=== PATIENT | female | born 1955 | race Caucasian/White ===

== ENCOUNTER 2017-06-13 23:15 | Observation (INO) | payer OTHER ==
[2017-06-13] MEDS ORDERED: NS 1,000 ML IV ONE ×2 (23:22)
[2017-06-13] MEDS ORDERED: ONDANSETRON 4 MG/2 ML VIAL IVP ONE (23:22)
--- NOTE | 2017-06-13 23:26 | EDPHY ---
H & P HPI/ROS: HPI CHIEF COMPLAINT: Nausea, vomiting, diarrhea, abdominal pain HISTORY OF PRESENT ILLNESS: This patient is 61-year-old female she reports to me she has no significant medical history does not take any daily medications she has had an appendectomy and cholecystectomy. She presents emergency room for 3 days of nausea vomiting and diarrhea. She reports that the diarrhea is watery. Nonbloody. She endorses chills and muscle aches but no fever. She denies chest pain. She does endorse some mild shortness of breath with nausea. She also complains of lower abdominal pain. No urinary symptoms. She states she was in a conference at [facility] and started getting sick on Monday with nausea vomiting and then diarrhea started. Past Medical History: Denies significant medical history except for osteoporosis, recent dental extraction no antibiotics. Past Surgical History: Cholecystectomy, appendectomy Social History: Denies daily drug use alcohol tobacco. Family History: Noncontributory ROS REVIEW OF SYSTEMS: A comprehensive 10 point review of systems is otherwise negative aside from elements mentioned in the history of present illness. Exam Constitutional appears well nontoxic triage nursing summary reviewed, vital signs reviewed, awake/alert. Eyes normal conjunctivae and sclera, EOMI, PERRLA. HENT normal inspection, atraumatic, moist mucus membranes, no epistaxis, neck supple/ no meningismus, no raccoon eyes. Respiratory clear to auscultation bilaterally, normal breath sounds, no respiratory distress, no wheezing. Cardiovascular rate normal, regular rhythm, no murmur, no edema, distal pulses normal. Gastrointestinal soft, mild tender palpation lower abdomen , no rebound, no guarding, normal bowel sounds, no distension, no pulsatile mass. Genitourinary no CVA tenderness. Musculoskeletal no midline vertebral tenderness, full range of motion, no calf swelling, no tenderness of extremities, no meningismus, good pulses, neurovascularly intact. Skin pink, warm, & dry, no rash, skin atraumatic. Neurologic awake, alert and oriented x 3, AAOx3, moves all 4 extremities equally, motor intact, sensory intact, CN II-XII intact, normal cerebellar, normal vision, normal speech. Psychiatric normal mood/affect. Heme/Lymph/Immune no lymphadenopathy. Differential diagnosis includes but is not limited to and in no particular order : Bowel obstruction, diverticulitis, colitis, enteritis, perforated viscus, gastritis, GERD, esophagitis, urinary tract infection, pyelonephritis, kidney stones Medical Decision Making: Plan for this patient IV established with IV fluid bolus, 1 L normal saline, IV Zofran 4 mg for nausea, GI pathogen panel, electrolytes, CT scan abdomen pelvis with IV contrast rule out colitis or diverticulitis. Reason for CT scan lower abdominal pain in the setting of elderly female with diarrhea. Check UA. Re-evaluate. Re-evaluation: EKG interpretation by me on record in [facility] system. Impression time of EKG 2351 sinus rhythm rate of 67. No acute ischemic change appreciated. CT scan abdomen pelvis with IV contrast; shows no acute inflammatory process. Reviewed patient's blood work this shows hepatitis or elevated liver enzymes, elevated alk-phos and bilirubin. CT scan does not show anything significant of the liver or biliary tract. Biliary tract does not appear dilated post cholecystectomy. Patient does not have significant right upper quadrant pain. Patient be admitted to the hospitalist service for nausea vomiting diarrhea generalized weakness low-sodium and elevated LFTs. Spoke with the hospitalist service Dr. Turner who agrees to admit this patient to the medicine service for nausea vomiting diarrhea generalized weakness elevated LFTs. She did receive 1 L normal saline here in the emergency room. Source: Patient, EMS Constitutional: Initial Vital Signs Temperature (C) 36.8 C 06/13/17 23:19 Heart Rate 68 06/13/17 23:19 Respiratory Rate 16 06/13/17 23:19 Blood Pressure 146/58 H 06/13/17 23:19 O2 Sat (%) 97 06/13/17 23:19 O2 Delivery Mode Room Air Allergies/Adverse Reactions: gluten Allergy (Verified 06/13/17 23:27) lactose Allergy (Verified 06/13/17 23:27) Home Medications: Medication Instructions Recorded NK [No Known Home Meds] 06/13/17 Medical Decision Making - Diagnostics Imaging Results: Imaging Impressions Abdomen CT 06/13/17 23:22 Impression: 1. No acute findings. 2. Mild biliary dilatation, most likely related to prior cholecystectomy. 3. Periportal edema, which can be seen with vigorous IV hydration but is nonspecific. 4. Additional findings as above. Findings discussed with Chad Beard MD 06/14/2017 at 0:27. - Data Points Laboratory Results: Laboratory Results 06/13/17 23:15 06/13/17 23:15 06/14/17 06/13/17 06/13/17 00:36 23:15 23:15 WBC RBC Hgb Hct MCV MCH MCHC RDW Plt Count MPV Neut % (Auto) Lymph % (Auto) Trigg % (Auto) Eos % (Auto) Baso % (Auto) Nucleat RBC Rel Count Absolute Neuts (auto) Absolute Lymphs (auto) Absolute Monos (auto) Absolute Eos (auto) Absolute Basos (auto) Absolute Nucleated RBC Immature Gran % Immature Gran # Platelet Estimate PT 12.7 SEC SEC (12.0-15.0) INR 0.96 (0.83-1.16) APTT 27.0 SEC SEC (23.0-38.0) Sodium Potassium Chloride Carbon Dioxide Anion Gap BUN Creatinine Estimated GFR Glucose Calcium Total Bilirubin Conjugated Bilirubin Unconjugated Bilirubin AST ALT Alkaline Phosphatase Troponin I Total Protein Albumin Lipase Urine Color Urine Appearance Urine pH Ur Specific [place] Urine Protein Urine Ketones Urine Blood Urine Nitrate Urine Bilirubin Urine Urobilinogen Ur Leukocyte Esterase Urine Glucose Nasal Influenza A PCR Pending Nasal Influenza B PCR Pending Hepatitis A IgM Ab Pending Hep Bs Antigen Pending Hep B Core IgM Ab Pending Hepatitis C Antibody Pending 06/13/17 06/13/17 06/13/17 23:15 23:15 00:29 WBC 7.82 10^3/uL 10^3/uL (3.80-9.50) RBC 4.81 10^6/uL 10^6/uL (4.18-5.33) Hgb 15.6 g/dL g/dL (12.6-16.3) Hct 41.8 % % (38.0-47.0) MCV 86.9 fL fL (81.5-99.8) MCH 32.4 pg pg (27.9-34.1) MCHC 37.3 g/dL H g/dL (32.4-36.7) RDW 12.3 % % (11.5-15.2) Plt Count 203 10^3/uL 10^3/uL (150-400) MPV 10.1 fL fL (8.7-11.7) Neut % (Auto) 74.6 % H % (39.3-74.2) Lymph % (Auto) 13.0 % L % (15.0-45.0) Trigg % (Auto) 11.3 % % (4.5-13.0) Eos % (Auto) 0.3 % L % (0.6-7.6) Baso % (Auto) 0.3 % % (0.3-1.7) Nucleat RBC Rel Count 0.0 % % (0.0-0.2) Absolute Neuts (auto) 5.84 10^3/uL 10^3/uL (1.70-6.50) Absolute Lymphs (auto) 1.02 10^3/uL 10^3/uL (1.00-3.00) Absolute Monos (auto) 0.88 10^3/uL H 10^3/uL (0.30-0.80) Absolute Eos (auto) 0.02 10^3/uL L 10^3/uL (0.03-0.40) Absolute Basos (auto) 0.02 10^3/uL 10^3/uL (0.02-0.10) Absolute Nucleated RBC 0.00 10^3/uL 10^3/uL (0-0.01) Immature Gran % 0.5 % % (0.0-1.1) Immature Gran # 0.04 10^3/uL 10^3/uL (0.00-0.10) Platelet Estimate Pending PT INR APTT Sodium 131 mEq/L L mEq/L (134-144) Potassium 3.3 mEq/L L mEq/L (3.5-5.2) Chloride 92 mEq/L L mEq/L (97-110) Carbon Dioxide 26 mEq/l mEq/l (22-31) Anion Gap 13 mEq/L mEq/L (8-16) BUN 7 mg/dL mg/dL (7-23) Creatinine 1.0 mg/dL mg/dL (0.6-1.0) Estimated GFR 56 Glucose 124 mg/dL H mg/dL (70-100) Calcium 9.2 mg/dL mg/dL (8.5-10.4) Total Bilirubin 2.4 mg/dL H mg/dL (0.1-1.4) Conjugated Bilirubin 0.8 mg/dL H mg/dL (0.0-0.5) Unconjugated Bilirubin 1.6 mg/dL H mg/dL (0.0-1.1) AST 626 IU/L H IU/L (14-46) ALT 377 IU/L H IU/L (9-52) Alkaline Phosphatase 190 IU/L H IU/L (38-126) Troponin I < 0.012 ng/mL ng/mL (0.000-0.034) Total Protein 6.6 g/dL g/dL (6.3-8.2) Albumin 4.2 g/dL g/dL (3.5-5.0) Lipase 312 IU/L H IU/L (23-300) Urine Color Pending Urine Appearance Pending Urine pH Pending Ur Specific [place] Pending Urine Protein Pending Urine Ketones Pending Urine Blood Pending Urine Nitrate Pending Urine Bilirubin Pending Urine Urobilinogen Pending Ur Leukocyte Esterase Pending Urine Glucose Pending Nasal Influenza A PCR Nasal Influenza B PCR Hepatitis A IgM Ab Hep Bs Antigen Hep B Core IgM Ab Hepatitis C Antibody Medications Given: Discontinued Medications Sodium Chloride (Ns) 1,000 mls @ 0 mls/hr IV EDNOW ONE; Wide Open PRN Reason: Protocol Stop: 06/13/17 23:23 Last Admin: 06/13/17 23:40 Dose: 1,000 mls Ondansetron HCl (Zofran) 4 mg IVP EDNOW ONE Stop: 06/13/17 23:23 Last Admin: 06/13/17 23:40 Dose: 4 mg Departure - Departure Disposition: [facility] Inpatient Acute Clinical Impression: Elevated LFTs, Hyponatremia Condition: Fair Referrals: Patient,NotPresent [Primary Care Provider] - As per Instructions
[2017-06-13 23:37] LABS: INR 0.96 (0.83-1.16); PROTIME(PATIENT) 12.7 SEC (12.0-15.0)
[2017-06-13 23:39] LABS: ALANINE AMINOTRANSFERASE 377 IU/L (9-52); ALBUMIN 4.2 g/dL (3.5-5.0); ALKALINE PHOSPHATASE 190 IU/L (38-126); ANION GAP 13 mEq/L (8-16); ASPARTATE AMINOTRANSFERASE 626 IU/L (14-46); BILIRUBIN,TOTAL 2.4 mg/dL (0.1-1.4); BILIRUBIN-CONJUGATED 0.8 mg/dL (0.0-0.5); BILIRUBIN-UNCONJUGATED 1.6 mg/dL (0.0-1.1); CALCIUM 9.2 mg/dL (8.5-10.4); CARBON DIOXIDE 26 mEq/l (22-31); CHLORIDE 92 mEq/L (97-110); GLOMERULAR FILTRATION RATE 56; GLUCOSE 124 mg/dL (70-100); POTASSIUM 3.3 mEq/L (3.5-5.2); SODIUM 131 mEq/L (134-144); TOTAL PROTEIN 6.6 g/dL (6.3-8.2)
[2017-06-13] MEDS ORDERED: IOPAMIDOL (ISOVUE-300) 100 ML BTL ONE (23:41)
[2017-06-13 23:50] LABS: TROPONIN I < 0.012 ng/mL (0.000-0.034)
--- NOTE | 2017-06-13 23:54 | CPEKG ---
Heart Rate: 67 RR Interval: 896 P-R Interval: 196 QRSD Interval: 100 QT Interval: 432 QTC Interval: 456 P Henning: 24 QRS Henning: -21 T Wave Henning: 38 EKG Severity - OTHERWISE NORMAL ECG - EKG Impression: SINUS RHYTHM EKG Impression: BORDERLINE LEFT AXIS DEVIATION Electronically Signed By: Chad Beard 14-Jun-2017 06:23:00
[2017-06-13 23:58] LABS: % IMMATURE GRANULYOCYTES 0.5 % (0.0-1.1); ABSOLUTE IMMATURE GRANULOCYTES 0.04 10^3/uL (0.00-0.10); ADD DIFF? NO; ADD MORPH? YES; HEMATOCRIT 41.8 % (38.0-47.0); HEMOGLOBIN 15.6 g/dL (12.6-16.3); MEAN CELL HEMOGLOBIN 32.4 pg (27.9-34.1); MEAN CELL HEMOGLOBIN CONCENTR. 37.3 g/dL (32.4-36.7); MEAN CELL VOLUME 86.9 fL (81.5-99.8); MEAN PLATELET VOLUME 10.1 fL (8.7-11.7); PLATELET COUNT 203 10^3/uL (150-400); RED BLOOD CELL COUNT 4.81 10^6/uL (4.18-5.33); RED CELL DISTRIBUTION WIDTH 12.3 % (11.5-15.2)
[2017-06-14 00:44] LABS: COLOR YELLOW; LEUKOCYTE ESTERASE,URINE NEGATIVE (NEGATIVE); NITRITE,URINE NEGATIVE (NEGATIVE)
[2017-06-14] MEDS ORDERED: ACETAMINOPHEN 325 MG TAB PO PRN (00:45)
[2017-06-14] MEDS ORDERED: ONDANSETRON 4 MG/2 ML VIAL IVP PRN (00:45)
[2017-06-14] MEDS ORDERED: D5W 1/2 NS W/ 20 KCl/L 1,000 ML IV SCH (00:45)
[2017-06-14] MEDS ORDERED: ONDANSETRON DISINTEGRATING 4 MG TAB PO PRN (00:45)
[2017-06-14 01:15] LABS: PLATELET ESTIMATE ADEQUATE (ADEQ); POLYCHROMASIA 1+
--- NOTE | 2017-06-14 02:16 | PDGENHP ---
History and Physical - Chief Complaint Diarrhea - History of Present Illness 61 yo F w/ no significant PMHx presents with diarrhea. 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 She relates that several people at the conference had similar symptoms. She denies consuming any unusual or undercooked foods. She called EMS to bring her to the ED once she felt to fatigued to bring herself to the hospital. At the time of my evaluation her symptoms are improved after fluids and anti-emetics. History Information - Allergies/Home Medication List Allergies/Adverse Reactions: gluten Allergy (Verified 06/13/17 23:27) lactose Allergy (Verified 06/13/17 23:27) Home Medications: NK [No Known Home Meds] 06/13/17 [Last Taken Unknown] I have personally reviewed and updated: family history, medical history - Past Medical History osteoporosis - Surgical History Reports: cholecystectomy - Family History Positive for: cancer - Social History Smoking Status: Former smoker Review of Systems Review of Systems: ROS: 10pt was reviewed & negative except for what was stated in HPI & below Physical Exam Physical Exam: Temp Pulse Resp BP Pulse Ox 36.9 C 69 16 127/60 H 97 06/14/17 01:29 06/14/17 01:29 06/14/17 01:29 06/14/17 01:29 06/14/17 01:29 Constitutional: no apparent distress, not in pain Eyes: PERRL, EOMI Ears, Nose, Mouth, Throat: moist mucous membranes, no oral mucosal ulcers Cardiovascular: regular rate and rhythym, no murmur, rub, or gallop Respiratory: no respiratory distress, no rales or rhonchi Gastrointestinal: normoactive bowel sounds, soft, non-tender abdomen Skin: warm, normal color Musculoskeletal: full muscle strength, no muscle tenderness Neurologic: AAOx3, CN II-XII Intact Lab Data & Imaging Review 06/13/17 23:15 06/13/17 23:15 WBC 7.82 10^3/uL (3.80-9.50) 06/13/17 23:15 RBC 4.81 10^6/uL (4.18-5.33) 06/13/17 23:15 Hgb 15.6 g/dL (12.6-16.3) 06/13/17 23:15 Hct 41.8 % (38.0-47.0) 06/13/17 23:15 MCV 86.9 fL (81.5-99.8) 06/13/17 23:15 MCH 32.4 pg (27.9-34.1) 06/13/17 23:15 MCHC 37.3 g/dL (32.4-36.7) H 06/13/17 23:15 RDW 12.3 % (11.5-15.2) 06/13/17 23:15 Plt Count 203 10^3/uL (150-400) 06/13/17 23:15 MPV 10.1 fL (8.7-11.7) 06/13/17 23:15 Neut % (Auto) 74.6 % (39.3-74.2) H 06/13/17 23:15 Lymph % (Auto) 13.0 % (15.0-45.0) L 06/13/17 23:15 Scott % (Auto) 11.3 % (4.5-13.0) 06/13/17 23:15 Eos % (Auto) 0.3 % (0.6-7.6) L 06/13/17 23:15 Baso % (Auto) 0.3 % (0.3-1.7) 06/13/17 23:15 Nucleat RBC Rel Count 0.0 % (0.0-0.2) 06/13/17 23:15 Absolute Neuts (auto) 5.84 10^3/uL (1.70-6.50) 06/13/17 23:15 Absolute Lymphs (auto) 1.02 10^3/uL (1.00-3.00) 06/13/17 23:15 Absolute Monos (auto) 0.88 10^3/uL (0.30-0.80) H 06/13/17 23:15 Absolute Eos (auto) 0.02 10^3/uL (0.03-0.40) L 06/13/17 23:15 Absolute Basos (auto) 0.02 10^3/uL (0.02-0.10) 06/13/17 23:15 Absolute Nucleated RBC 0.00 10^3/uL (0-0.01) 06/13/17 23:15 Immature Gran % 0.5 % (0.0-1.1) 06/13/17 23:15 Immature Gran # 0.04 10^3/uL (0.00-0.10) 06/13/17 23:15 Platelet Estimate ADEQUATE (ADEQ) 06/13/17 23:15 Polychromasia 1+ H 06/13/17 23:15 PT 12.7 SEC (12.0-15.0) 06/13/17 23:15 INR 0.96 (0.83-1.16) 06/13/17 23:15 APTT 27.0 SEC (23.0-38.0) 06/13/17 23:15 Sodium 131 mEq/L (134-144) L 06/13/17 23:15 Potassium 3.3 mEq/L (3.5-5.2) L 06/13/17 23:15 Chloride 92 mEq/L (97-110) L 06/13/17 23:15 Carbon Dioxide 26 mEq/l (22-31) 06/13/17 23:15 Anion Gap 13 mEq/L (8-16) 06/13/17 23:15 BUN 7 mg/dL (7-23) 06/13/17 23:15 Creatinine 1.0 mg/dL (0.6-1.0) 06/13/17 23:15 Estimated GFR 56 06/13/17 23:15 Glucose 124 mg/dL (70-100) H 06/13/17 23:15 Calcium 9.2 mg/dL (8.5-10.4) 06/13/17 23:15 Total Bilirubin 2.4 mg/dL (0.1-1.4) H 06/13/17 23:15 Conjugated Bilirubin 0.8 mg/dL (0.0-0.5) H 06/13/17 23:15 Unconjugated Bilirubin 1.6 mg/dL (0.0-1.1) H 06/13/17 23:15 AST 626 IU/L (14-46) H 06/13/17 23:15 ALT 377 IU/L (9-52) H 06/13/17 23:15 Alkaline Phosphatase 190 IU/L (38-126) H 06/13/17 23:15 Troponin I < 0.012 ng/mL (0.000-0.034) 06/13/17 23:15 Total Protein 6.6 g/dL (6.3-8.2) 06/13/17 23:15 Albumin 4.2 g/dL (3.5-5.0) 06/13/17 23:15 Lipase 312 IU/L (23-300) H 06/13/17 23:15 Urine Color YELLOW 06/13/17 00:29 Urine Appearance CLEAR 06/13/17 00: Urine pH 6.0 (5.0-7.5) 06/13/17 00:29 Ur Specific [place] 1.011 (1.002-1.030) 06/13/17 00:29 Urine Protein NEGATIVE (NEGATIVE) 06/13/17 00: Urine Ketones NEGATIVE (NEGATIVE) 06/13/17 00: Urine Blood 1+ (NEGATIVE) H 06/13/17 00:29 Urine Nitrate NEGATIVE (NEGATIVE) 06/13/17 00: Urine Bilirubin NEGATIVE (NEGATIVE) 06/13/17: Urine Urobilinogen NEGATIVE EU (0.2-1.0) 06/13/17 00:29 Ur Leukocyte Esterase NEGATIVE (NEGATIVE) 06/13/17 00:29 Urine RBC 1-3 /hpf (0-3) 06/13/17 00:29 Urine WBC 1-3 /hpf (0-3) 06/13/17 00:29 Ur Epithelial Cells TRACE /lpf (NONE-1+) 06/13/17 00:29 Urine Glucose NEGATIVE (NEGATIVE) 06/13/17 00:29 Nasal Influenza A PCR NEGATIVE FOR FLU A (NEGATIVE) 06/14/17 00:36 Nasal Influenza B PCR NEGATIVE FOR FLU B (NEGATIVE) 06/14/17 00:36 Imaging Review: CT A/P with no acute findings. Visualized and Interpreted EKG results: Yes EKG Interpretation: Positive for: normal sinsus rhythm, NS ST wave abnormalities Assessment & Plan Assessment: 61 yo F w/ no significant PMHx presents with severe diarrhea, abnormal LFTs, and significant dehydration. Plan: 1. Diarrhea - Suspect viral etiology noting that this started while she was traveling for a conference and several other attendees had similar symptoms. She denies recent abx, foreign travel, or consumption of unusual or undercooked foods. Influenza negative. - Supportive care w/ mIVF, anti-emetics - Will check GI PCR and acute hepatitis panels 2. Abnormal LFTs - Related to above process and likely a reflection of viral inflammation. CT A/P without acute findings. She is s/p cholecystectomy. Will check acute hepatitis panel and HIV. 3. Hyponatremia, hypokalemia - Reflection of dehydration and diarrhea; NS + K in mIVF. Diet - Clears, ADAT Code - Full Ppx - SCDs Dispo - Admit to observation status
[2017-06-14] MEDS: NS W/ 20 KCl/L 1,000 ML IV SCH ×2 (02:32→13:58)
[2017-06-14 05:13] LABS: % IMMATURE GRANULYOCYTES 0.5 % (0.0-1.1); ABSOLUTE IMMATURE GRANULOCYTES 0.02 10^3/uL (0.00-0.10); ADD DIFF? NO; HEMATOCRIT 37.5 % (38.0-47.0); HEMOGLOBIN 13.9 g/dL (12.6-16.3); MEAN CELL HEMOGLOBIN 32.2 pg (27.9-34.1); MEAN CELL HEMOGLOBIN CONCENTR. 37.1 g/dL (32.4-36.7); MEAN CELL VOLUME 86.8 fL (81.5-99.8); MEAN PLATELET VOLUME 9.7 fL (8.7-11.7); PLATELET COUNT 174 10^3/uL (150-400); RED BLOOD CELL COUNT 4.32 10^6/uL (4.18-5.33); RED CELL DISTRIBUTION WIDTH 12.2 % (11.5-15.2)
[2017-06-14 05:14] LABS: ADD MORPH? YES
[2017-06-14 05:15] LABS: ALANINE AMINOTRANSFERASE 561 IU/L (9-52); ALBUMIN 3.2 g/dL (3.5-5.0); ALKALINE PHOSPHATASE 153 IU/L (38-126); ANION GAP 8 mEq/L (8-16); ASPARTATE AMINOTRANSFERASE 611 IU/L (14-46); BILIRUBIN,TOTAL 1.2 mg/dL (0.1-1.4); CALCIUM 8.4 mg/dL (8.5-10.4); CARBON DIOXIDE 26 mEq/l (22-31); CHLORIDE 107 mEq/L (97-110); CREATININE 0.8 mg/dL (0.6-1.0); GLOMERULAR FILTRATION RATE > 60; GLUCOSE 108 mg/dL (70-100); POTASSIUM 3.9 mEq/L (3.5-5.2); SODIUM 141 mEq/L (134-144); TOTAL PROTEIN 5.4 g/dL (6.3-8.2)
[2017-06-14 05:44] LABS: PLATELET ESTIMATE ADEQUATE (ADEQ)
[2017-06-14 07:48] VITALS: RESP 14
[2017-06-14 11:20] VITALS: BP 116/74; PULSE 68; TEMP 98.7; O2SAT 96
--- NOTE | 2017-06-14 11:50 | ASMTCMCOM ---
CM Note CM Note Notes: Pt. is a 61-year-old woman admitted with diarrhea and recent nausea and vomiting for three days. 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 Pt. lives independently and normally quite healthy. Anticipate independent d/c when ready. CM available should d/c POC change. Date Signed: 06/14/2017 11:49 AM Electronically Signed By:Danielle Sánchez LCSW
[2017-06-14] MEDS ORDERED: CALCIUM CARBONATE 500 MG CHEWABLE TAB PO PRN (14:17)
--- NOTE | 2017-06-14 19:02 | GDS ---
[f rep st] DISCHARGE SUMMARY DISCHARGE DIAGNOSIS: Acute viral gastroenteritis. HISTORY OF PRESENT ILLNESS: A 61-year-old female, who was recently traveling for a social work confe rence, who became nauseated, vomiting, and with diarrhea. Patient had 3 days of symptoms that ultima tely led to her presentation to the emergency department. For details of patient's initial presentat ion, please see the history and physical dated 06/13/2017. CONSULTATIVE SERVICES: None. PROCEDURES: On 06/13, patient had a CT of the abdomen which showed no acute findings. HOSPITAL COURSE BY ISSUE: Acute viral gastroenteritis: The patient's diarrhea did stop after aggres sive supportive treatment. Her nausea was well controlled overnight, and she tolerated oral intake t he morning after presentation. We were never able to analyze her stool for pathogens as she no longe r had diarrhea, most consistent with a viral presentation. Patient was taking a regular diet at the time of disposition and is being discharged home with outpatient followup. DISPOSITION MEDICATIONS: Please reference med rec. No new medications were added to this patient's list. PENDING STUDIES: At the time of this dictation, none. PLAN: Patient is to follow with her primary care provider as needed in the next 3-4 weeks. /[id number]/MODL
--- NOTE | 2017-06-15 10:50 | ASDISCHSUM ---
Discharge Information Plan Status:Home with No Needs Medically Cleared to Leave: Discharge Date:06/14/2017 04:22 PM D/C Disposition:Home, Routine, Self-Care ADT D/C Disposition:Home, Routine, Self-Care Projected Discharge Date:06/14/2017 04:22 PM Transportation at D/C: Discharge Delay Reason: Follow-Up Date:06/14/2017 04:22 PM Discharge Slot: Final Diagnosis: Placement Information Patient Contact Information Contact Name:INA Relationship:Sister Address:[address] City:[place] Alternate Phone: [facility]/Zip Code:[place] [address] Email: Financial Information Financial Class:HMO and PPO Plans Primary Plan Desc:[employer]ENU ARROYO Primary Plan Number:[id number] Secondary Plan Desc: Secondary Plan Number: Assessment Information LACE LACE Length of stay for Answers: Less than 1 day current admission Acuity / Level of Care Answers: Was the patient admitted to hospital via the emergency department? Yes: Emergency dept visits in Answers: 0 last 6 months Score: 3 Date Signed: 06/14/2017 11:47 AM Electronically Signed By:Danielle Sánchez LCSW [facility] CM Progress Note CM Note CM Note Notes: Pt. is a 61-year-old woman admitted with diarrhea and recent nausea and vomiting for three days. 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 Pt. lives independently and normally quite healthy. Anticipate independent d/c when ready. CM available should d/c POC change. Date Signed: 06/14/2017 11:49 AM Electronically Signed By:Danielle Sánchez, [employer] Intervention Information
== END 2017-06-14 16:22 | disposition home or self-care (01) ==
LOC: EDUNIT# → EDBD → F3E 06-14 01:26
PROVIDERS: ADMIT Student in an Organized Health Care Education/Training Program; ATTEND Hospitalist
PROC: 3E0337Z Introduction of Electrolytic and Water Balance Substance into Peripheral Vein, Percutaneous Approach (ICD-10-PCS; principal; 2017-06-13)
DX: A08.4 Viral intestinal infection, unspecified (principal); R94.5 Abnormal results of liver function studies; E87.1 Hypo-osmolality and hyponatremia; E87.6 Hypokalemia; Z87.891 Personal history of nicotine dependence
CPT/HCPCS: 74177; 93005; 96361; 96374; 99285; G0378; G0472; J2405; Q9967

== ENCOUNTER → 2017-08-18 | Outpatient (CLI) | payer OTHER | LOC: FIMAGING 15:14 | PROVIDERS: ATTEND Family Medicine | DX: Z12.31 Encounter for screening mammogram for malignant neoplasm of breast (principal) ==

== ENCOUNTER → 2018-01-04 | Outpatient (CLI) | payer OTHER | LOC: FIMAGING 10:11 | PROVIDERS: ATTEND Podiatrist | DX: Z13.828 Encounter for screening for other musculoskeletal disorder (principal) ==

== ENCOUNTER → 2018-10-29 | Outpatient (CLI) | payer OTHER | LOC: FIMAGING 08:44 | PROVIDERS: ATTEND Family Medicine | DX: Z12.31 Encounter for screening mammogram for malignant neoplasm of breast (principal) ==